=== PATIENT | female | born 1980 | race Caucasian/White ===

== ENCOUNTER 2022-01-31 16:15 | Outpatient (CLI) | payer SELFPAY ==
[2022-01-31 16:37] VITALS: BP 111/69; PULSE 86
[2022-01-31 16:42] VITALS: BMI 29.2
[2022-01-31 16:52] VITALS: BP 104/69; PULSE 95
[2022-01-31 17:08] VITALS: BP 113/69; PULSE 75
[2022-01-31 17:22] VITALS: BP 108/67; PULSE 74
[2022-01-31 17:32] VITALS: BP 108/67; PULSE 74; RESP 16; TEMP 36.6
== END 2022-01-31 17:40 | disposition home or self-care (01) ==
LOC: OPOB 16:29 → OBGYN 16:30
PROVIDERS: Visit Provider Family Medicine
DX: O36.8190 Decreased fetal movements, unspecified trimester, not applicable or unspecified (principal); Z3A.00 Weeks of gestation of pregnancy not specified
CPT/HCPCS: 59025; 99211

== ENCOUNTER 2022-02-06 16:58 | Outpatient (CLI) | payer SELFPAY ==
[2022-02-06 17:10] VITALS: TEMP 35.9
[2022-02-06 17:11] VITALS: BP 115/76; PULSE 105
[2022-02-06 17:12] VITALS: TEMP 36.1
[2022-02-06 17:20] VITALS: BMI 27.4
[2022-02-06 17:28] VITALS: BP 111/76; PULSE 110
== END 2022-02-06 17:40 | disposition home or self-care (01) ==
LOC: OPOB 16:58 → OBGYN 16:59
PROVIDERS: Visit Provider Family Medicine
DX: O26.899 Other specified pregnancy related conditions, unspecified trimester (principal); Z3A.00 Weeks of gestation of pregnancy not specified
CPT/HCPCS: 59025

== ENCOUNTER 2022-02-09 10:25 | Outpatient (CLI) | payer SELFPAY ==
--- NOTE | 2022-02-09 | US_ITS ---
WS: [id number] BIOPHYSICAL PROFILE AND LIMITED OB. AMNIOTIC FLUID INDEX. HISTORY: POSSIBLE IUGR COMPARISON: 12/22/2021 Presentation: Vertex. Cervix: Closed and normal length. Placenta: Posterior, no previa or abruption. Grade: 1. HEART: FHR of 120BPM. measurements: BPD = 8.7 cm = 35w1d HC = 32.0 cm = 36w0d AC = 33.5 cm = 37w3d FL = 7.0 cm = 36w0d OSMEL: 8.0; largest single vertical pocket of amniotic fluid 3.5 cm. EFW: 2989 g; 58 %. AGA by ultrasound: 36w1d CARMEN by ultrasound: 03/08/2022 Abdominal circumference is measuring approximately 2 weeks greater then the BPD. Overall appropriate interval growth since the second trimester ultrasound is 12/22/2021. Biophysical profile: Parameters are as follows: Breathin Movement: 2 Tone: 2 Fluid volume: 2 US/US OB lmt w/ BPP wo NST IMPRESSION: 1. Biophysical profile score: 8/8. 2. Single intrauterine gestation of 36w1d and 03/08/2022. Abdominal circumferen ce is measuring just slightly greater than the head circumference and abdominal circumference. Less than 3 weeks discrepancy. 3. Estimated weight at the 58th percentile. 4. Normal amniotic fluid index.
[2022-02-09 10:30] VITALS: BMI 27.8
--- NOTE | 2022-02-09 10:32 | US_ITS ---
WS: [id number] BIOPHYSICAL PROFILE AND LIMITED OB. AMNIOTIC FLUID INDEX. HISTORY: POSSIBLE IUGR COMPARISON: 12/22/2021 Presentation: Vertex. Cervix: Closed and normal length. Placenta: Posterior, no previa or abruption. Grade: 1. HEART: FHR of 120BPM. measurements: BPD = 8.7 cm = 35w1d HC = 32.0 cm = 36w0d AC = 33.5 cm = 37w3d FL = 7.0 cm = 36w0d OSMEL: 8.0; largest single vertical pocket of amniotic fluid 3.5 cm. EFW: 2989 g; 58 %. AGA by ultrasound: 36w1d CARMEN by ultrasound: 03/08/2022 Abdominal circumference is measuring approximately 2 weeks greater then the BPD. Overall appropriate interval growth since the second trimester ultrasound is 12/22/2021. Biophysical profile: Parameters are as follows: Breathin Movement: 2 Tone: 2 Fluid volume: 2
[2022-02-09 10:36] VITALS: BP 111/73; PULSE 82
[2022-02-09 11:06] VITALS: BP 119/78; PULSE 73
[2022-02-09 11:36] VITALS: BP 117/78; PULSE 76
[2022-02-09 12:06] VITALS: BP 121/66; PULSE 71
[2022-02-09 13:04] VITALS: BP 121/66; PULSE 71
== END 2022-02-09 12:40 | disposition home or self-care (01) ==
LOC: OPOB 10:29 → OBGYN 10:30
PROVIDERS: Visit Provider Family Medicine
DX: O26.899 Other specified pregnancy related conditions, unspecified trimester (principal); Z3A.00 Weeks of gestation of pregnancy not specified; N89.8 Other specified noninflammatory disorders of vagina
CPT/HCPCS: 59025; 76815; 76819; 99211

== ENCOUNTER 2022-02-13 13:17 | Outpatient (CLI) | payer SELFPAY ==
[2022-02-13 13:23] VITALS: BP 124/82; PULSE 109
[2022-02-13 13:38] VITALS: BP 123/84; PULSE 97
== END 2022-02-13 13:50 | disposition home or self-care (01) ==
LOC: OPOB 13:18 → OBGYN 13:19
PROVIDERS: Visit Provider Family Medicine
DX: O09.529 Supervision of elderly multigravida, unspecified trimester (principal); Z3A.00 Weeks of gestation of pregnancy not specified
CPT/HCPCS: 59025

== ENCOUNTER 2022-02-16 | Inpatient (IN) | payer SELFPAY ==
[2022-02-15 23:40] VITALS: BP 126/77; PULSE 73
[2022-02-15 23:41] VITALS: TEMP 36
[2022-02-15 23:42] VITALS: BMI 28.0
[2022-02-15 23:53] LABS: Nitrazine Paper, PH Inconclusive
[2022-02-15 23:57] LABS: Actim Prom Positive
[2022-02-16] VITALS (64 sets, daily range): BP systolic 93–132; BP diastolic 54–73; PULSE 62–97; RESP 18; TEMP 36.3–36.6; O2SAT 92–100
[2022-02-16] MEDS: lactated ringers 1,000 ML 999 ML IV (00:18)
[2022-02-16 00:23] LABS: Basophils % 0.3 %; Eosinophils # 0.1 10^3/uL (0.0-0.8); Hematocrit 27.8 % (37.0-47.0); Hemoglobin 8.3 g/dL (11.5-15.3); Lymphocytes % 27.3 %; Mean Corpuscular HGB Conc 29.9 g/dL (30.0-36.0); Mean Corpuscular Hemoglobin 21.5 pg (28.0-34.0); Mean Platelet Volume 10.7 fL (7.4-10.4); Monocytes # 0.6 10^3/uL (0.2-0.9); Monocytes % 8.1 %; Neutrophils % 62.9 %; Nucleated Red Blood Cells % 0 %; Platelet Count 281 10^3/cmm (130-400); Red Blood Count 3.86 10^6/uL (4.1-5.3); Red Cell Distribution Width 15.3 % (12.1-15.1); White Blood Count 7.3 10^3/uL (4.0-10.0)
[2022-02-16] MEDS: citric acid-sodium citrate 30 mL UDC PO (00:30)
[2022-02-16] MEDS: metoclopramide 5 mg/mL SDV 2 mL 10 MG IVP (00:30)
[2022-02-16] MEDS: famotidine 20 mg/2 mL INJ IVP (00:30)
--- NOTE | 2022-02-16 00:31 | PM.OPHPUD ---
Labor & Delivery H&P Update Date of Procedure: February 16, 2022 Date H&P Performed: 02/15/22 Admission Diagnosis: IUP at 38 weeks 1 day gestation Spontaneous rupture of membranes Repeat section Advanced maternal age Grand multiparity Desired permanent surgical sterilization Planned procedure: Repeat low transverse section Bilateral tubal ligation
--- NOTE | 2022-02-16 00:39 | ANES.PREANE2 ---
Pre-Anesthetic Assessment Height/Weight: Height 1.6 m Weight 71.668 kg Temp Pulse BP 96.8 F L 73 126/77 02/15/22 23:41 02/15/22 23:40 02/15/22 23:40 Familial anesthetic complications: none Was Beta Efe taken within 24 hours: N/A Was Clonidine taken within 24 hours: N/A Last intake: Intake Last Liquid Date 02/15/22 Last Liquid Time 22:45 Last Solid Date 02/15/22 Last Solid Time 19:19 Social Tobacco (Vapes) and No alcohol Exam alert, oriented x 3 and regular rate & rhythm Airway Submandibular: within normal limits Cervical ROM: within normal limits Mallampati: Class II Dentition: chipped Anesthetic Plan ASA status: 2E Anesthesia: Regional (specify below) (SAB for repeat C/S (X4)) Medications/Allergies Home Medications Medication Instructions Recorded Confirmed Last Taken Type ferrous sulfate 325 mg (65 mg mg 02/06/22 02/15/22 History iron) tablet (Iron (ferrous sulfate)) Allergies Allergy/AdvReac Type Severity Reaction Status Date / Time No Known Allergies Allergy Verified 02/09/22 10:36 Current Medications Generic Name Dose Route Start Last Admin Trade Name Freq PRN Reason Stop Dose Admin Lactated Ringer's 1,000 mls @ 999 mls/hr 02/16/22 00:01 02/16/22 00:18 Lactated Ringers IV 02/16/22 01:01 999 mls/hr .Q1H1M ONE Administration PFSH Anesthesia Female Reproductive History : 10 Data Anesthesia : 02/16/22 00:05 Short CBC 02/16/22 Range/Units 00:05 WBC 7.3 (4.0-10.0) 10^3/uL Hgb 8.3 L (11.5-15.3) g/dL Hct 27.8 L (37.0-47.0) % MCV 72.0 L (81-99) fl Plt Count 281 (130-400) 10^3/cmm Neut % (Auto) 62.9 % Neut # (Auto) 4.60 (1.8-7.7) 10^3/uL Cardiac Studies: No Data to Display
--- NOTE | 2022-02-16 01:58 | ANE.PACU2 ---
Inpatient post-anesthesia follow up: Airway intact: Yes Vital signs: Temperature 96.8 F Pulse Rate 73 Respiratory Rate 14 Blood Pressure 126/77 Pulse Oximetry 100 Oxygen Delivery Me thod room air Oxygen Flow Rate Fraction of Inspir ed Oxygen Hydration adequate: Yes Nausea and vomiting: No Pain level: 1 Mental status: Baseline
--- NOTE | 2022-02-16 01:58 | PM.OP ---
Operative Report Date of procedure: February 16, 2022 Pre-op diagnosis: Repeat section Desired permanent surgical sterilization IUP at 38 weeks 1 days gestation Spontaneous rupture of membranes Procedure done: repeat low transverse section Bilateral tubal ligation Specimens removed/disposition: Vertex male infant weight 2800 g, 6 pounds 3 ounces, Apgars 8 and 9 Pathology: Segments of right and left fallopian tube Estimated blood loss (mL): 400 IV fluids (mL): 1,200 Urine output (mL): 400 Complications: None Procedure: After informed consent the patient was taken to the OR where spinal anesthesia was administered. She was prepped and draped in normal sterile fashion in dorsal supine position with a left lateral tilt. A Pfannenstiel skin incision was made through the previous scars and carried through to the underlying layer of fascia sharply. The fascia was then extended laterally using the Mayos. The fascia was grasped with Jeevan clamps and the underlying rectus muscles were dissected off. The uterus was present at the midline due to a space between the rectus muscles. There was not peritoneum overlying it. The site was manually stretched and the bladder blade was inserted. The vesicouterine peritoneum was identified and entered sharply using the Metzenbaums. The bladder flap was created digitally and the bladder blade was reinserted. Uterine incision was made in a transverse fashion in the lower uterine segment. Amniotic rupture of membranes was performed digitally with clear fluid. The infant was delivered vertex presentation without complication. Bulb suction of mouth and nares was performed at delivery. The cord was clamped and cut and the was handed to the waiting pediatric nurses. Cord blood was obtained. The placenta was then delivered using fundal pressure. A dry sponge was used to clear the uterus of clots and debris and the uterus was exteriorized from the abdomen. The uterine incision was repaired using 0 chromic in a running locked fashion. A second layer of the same suture was used in an imbricating manner. Pressure was applied to the incision site while tubal ligation was performed. The left fallopian tube was grasped with a Jayy and a proximal portion of the tube was ligated and excised. Specimen was sent to [facility] pathology. Tubal ostia were identified. The cut portions of the tube were coagulated using the Bovie. The right fallopian tube was then grasped with a [place] and a proximal portion of the tube was ligated and excised. Segment of the tube was sent to pathology. Tubal ostia were identified. Cut portions of the tube were coagulated using the Bovie. The uterine incision was then inspected for hemostasis and was found to have a small amount of bleeding at the midline. 0 chromic was used in an interrupted fashion along with pressure to obtain hemostasis. The uterus was then returned to the abdomen. Irrigation was used to clear the gutters of clots and debris and the uterine incision was reinspected for hemostasis. Due to a lack of abdominal peritoneum the rectus muscles were gently reapproximated at the midline using 4-0 Vicryl in an interrupted fashion. The subfascial tissue was inspected for hemostasis and the fascia was then reapproximated using 0 Vicryl in a running fashion. The subcutaneous tissue was irrigated and any small bleeders were coagulated using the Bovie. The subcutaneous tissue was then reapproximated using 4-0 Vicryl in a running fashion. The skin was then reapproximated using renee. A pressure bandage was applied and patient went to recovery in good condition. Sponge instrument and needle counts were correct.
[2022-02-16 05:11] LABS: Cocaine Screen Urine Negative (Negative); PCP Screen Urine Negative (Negative); THC Screen Urine Negative (Negative)
[2022-02-16 05:12] LABS: Amphetamines Screen Urine Negative (Negative); Barbiturates Screen Urine Negative (Negative); Benzodiazepines Screen Urine Negative (Negative); Opiate Screen Urine Negative (Negative)
[2022-02-16] MEDS: ketorolac 30 mg/mL INJ IVP ×3 (08:31→20:16)
[2022-02-16] MEDS: prenatal vitamin Capsule 1 CAP PO (08:32)
[2022-02-16] MEDS: ferrous sulfate EC 325 mg Tablet PO ×2 (08:32→18:31)
[2022-02-16] MEDS: docusate sodium 100 mg Capsule PO ×2 (08:32→18:31)
--- NOTE | 2022-02-16 13:00 | PC.NURSE ---
Patient up to ambulate halls of OBGYN unit x 2 with standby assist from RN SILVINA RN
[2022-02-16 14:45] LABS: Hematocrit 24.8 % (37.0-47.0); Hemoglobin 7.6 g/dL (11.5-15.3); Mean Corpuscular HGB Conc 30.6 g/dL (30.0-36.0); Mean Corpuscular Hemoglobin 21.8 pg (28.0-34.0); Mean Corpuscular Volume 71.1 fl (81-99); Mean Platelet Volume 10.7 fL (7.4-10.4); Platelet Count 222 10^3/cmm (130-400); Red Blood Count 3.49 10^6/uL (4.1-5.3); Red Cell Distribution Width 15.1 % (12.1-15.1); White Blood Count 7.4 10^3/uL (4.0-10.0)
--- NOTE | 2022-02-16 16:30 | PC.NURSE ---
Catheter removed at this time. SILVINA RN
[2022-02-17] MEDS: HYDROcodone-acetaminophen 5-325 mg Tablet PO ×3 (01:09→13:49)
[2022-02-17 04:17] VITALS: BP 115/60; PULSE 97; TEMP 36.9
[2022-02-17] MEDS: prenatal vitamin Capsule 1 CAP PO (07:52)
[2022-02-17] MEDS: ferrous sulfate EC 325 mg Tablet PO (07:52)
[2022-02-17] MEDS: docusate sodium 100 mg Capsule PO (07:52)
[2022-02-17] MEDS: ibuprofen 800 mg tablet PO (11:18)
[2022-02-17 11:19] VITALS: BP 107/66; PULSE 83; RESP 14; TEMP 36.2
[2022-02-17 11:20] VITALS: BP 107/66; PULSE 83
--- NOTE | 2022-02-17 12:15 | PM.DCS ---
Discharge Providers Date of Admission: 02/16/22 00:00 Date of Discharge: February 17, 2022 Attending Provider at Admission: Charleen Naik MD Attending Provider at Discharge: Charleen Naik MD Reason for Visit Reason for Visit: poss [facility] Hospital Course Hospital Course This is a 42-year-old G 10 now P 10 who was admitted for spontaneous rupture of membranes with history of prior sections. She was at 38 weeks 1 day gestation. She underwent a repeat section with bilateral tubal ligation. Postoperatively she has done well. She was ambulating, tolerating a regular diet, has good pain control and is comfortable with discharge home. She does have known anemia and her last hemoglobin was 7.6. She is asymptomatic and will continue taking iron upon discharge. Physical Exam Narrative: Alert and oriented, sitting in bedside chair, heart regular rate and rhythm, lungs clear to auscultation bilaterally, abdomen is soft with appropriate postoperative tenderness, pressure bandage is still in place clean dry and intact, extremities have no calf tenderness and no edema. Discharge Data Studies Completed and Pending Laboratory Results WBC 7.4 10^3/uL (4.0-10.0) 02/16/22 14:31 RBC 3.49 10^6/uL (4.1-5.3) L 02/16/22 14:31 Hgb 7.6 g/dL (11.5-15.3) L 02/16/22 14:31 Hct 24.8 % (37.0-47.0) L 02/16/22 14:31 MCV 71.1 fl (81-99) L 02/16/22 14:31 MCH 21.8 pg (28.0-34.0) L 02/16/22 14:31 MCHC 30.6 g/dL (30.0-36.0) 02/16/22 14:31 RDW 15.1 % (12.1-15.1) 02/16/22 14:31 Plt Count 222 10^3/cmm (130-400) 02/16/22 14:31 MPV 10.7 fL (7.4-10.4) H 02/16/22 14:31 Neut % (Auto) 62.9 % 02/16/22 00:05 Lymph % (Auto) 27.3 % 02/16/22 00:05 Pepin % (Auto) 8.1 % 02/16/22 00:05 Eos % (Auto) 1.0 % 02/16/22 00:05 Baso % (Auto) 0.3 % 02/16/22 00:05 Neut # (Auto) 4.60 10^3/uL (1.8-7.7) 02/16/22 00:05 Lymph # (Auto) 2.0 10^3/uL (0.8-4.8) 02/16/22 00:05 Pepin # (Auto) 0.6 10^3/uL (0.2-0.9) 02/16/22 00:05 Eos # (Auto) 0.1 10^3/uL (0.0-0.8) 02/16/22 00:05 Baso # (Auto) 0.0 10^3/uL (0.0-0.1) 02/16/22 00:05 Nucleated RBC % (auto) 0 % 02/16/22 00:05 Nucleated RBCs # 0.0 /100WBC 02/16/22 00:05 Insulin-like GF I Positive 02/15/22 23:50 Urine Opiates Screen Negative ng/mL (Negative) 02/16/22 00:53 Ur Barbiturates Screen Negative ng/mL (Negative) 02/16/22 00:53 Ur Phencyclidine Scrn Negative ng/mL (Negative) 02/16/22 00:53 Ur Amphetamines Screen Negative ng/mL (Negative) 02/16/22 00:53 U Benzodiazepines Scrn Negative ng/mL (Negative) 02/16/22 00:53 Urine Cocaine Screen Negative ng/mL (Negative) 02/16/22 00:53 U Marijuana (THC) Screen Negative ng/mL (Negative) 02/16/22 00:53 Blood Type O Positive 02/16/22 00:05 Rho(D) Type Positive 02/16/22 00:05 Antibody Screen Negative 02/16/22 00:05 Vitals Last Vital Signs Temp 97.2 F L 02/17/22 11:19 Pulse 83 02/17/22 11:20 Resp 14 02/17/22 11:19 BP 107/66 02/17/22 11:20 Pulse Ox 98 02/16/22 06:33 O2 Del Method 02/16/22 00:24 Discharge Plan Discharge Patient Disposition: Home Condition: Stable Prescriptions: New ibuprofen 800 mg Tablet 800 mg PO TID PRN (Reason: Abdominal Discomfort) Qty: 40 0RF hydrocodone-acetaminophen 5-325 mg Tablet 1 - 2 tab PO Q4H PRN (Reason: Moderate To Severe Pain) Qty: 12 0RF docusate sodium 100 mg Capsule 100 mg PO BID Qty: 60 0RF Continued ferrous sulfate [Iron (ferrous sulfate)] 325 mg (65 mg iron) Tablet Discharge Orders: Discharge Order (Routine); Ordered 02/17/22 Ordered By: Charleen Naik Referrals: Charleen Naik MD [Physician] - 1-3 days (Sunday for staple removal) Discharge Diet: Usual diet Discharge Activity: Limit activity as instructed Patient Instructions: Opioid Safety Discharge Attestations Time Spent in Discharge Care*: less than 30 min Quality Metrics Clinical Quality Measures [ No reported AMI, CVA or VTE this stay] Coding Level of Care Code Acute Chg FW DC note
[2022-02-17 17:03] VITALS: BP 112/67; PULSE 101; TEMP 36.9
[2022-02-17 18:00] VITALS: BP 112/67; PULSE 101; TEMP 36.9
== END 2022-02-17 17:25 | disposition home or self-care (01) | DRG 785 ==
LOC: OPOB 00:45 → OBGYN 00:45
PROVIDERS: Admitting Provider Family Medicine; Visit Provider Family Medicine
DX: O34.211 Maternal care for low transverse scar from previous cesarean delivery (principal); Z3A.38 38 weeks gestation of pregnancy; Z37.0 Single live birth; Z30.2 Encounter for sterilization
CPT/HCPCS: 36415; 51702; 58611; 59025; 59409; 80306; 83986; 84112; 85025; 85027; 86850; 86900; 88302; 99211; J1885; J2274; J2370; J2765; J3010; J3490; J7030

== ENCOUNTER 2022-05-15 06:26 | Emergency (ER) | payer SELFPAY ==
[2022-05-15 06:28] VITALS: BP 106/62; PULSE 75; RESP 18; TEMP 36.6; O2SAT 100; BMI 24.7
--- NOTE | 2022-05-15 07:08 | W.ED.DIZZY ---
HPI - Dizziness General: Chief Complaint: Dizziness Stated Complaint: dizziness, n/v Time Seen by Provider: 05/15/22 06:29 Source: patient Mode of arrival: EMS History of Present Illness: HPI Narrative: 42-year-old female presents to the emergency room with complaint of dizziness with any position changes. Worse when she sits up or stands up. Patient states it began suddenly around 8:00 last night she has not had any other concurrent symptoms. MD elicited complaint: dizziness and lightheadedness Onset (ago): hour(s) Timing: sudden onset Severity: moderate Description: sense of movement and lightheadedness Context: change in body position Exacerbating factors: change in body position Relieving factors: remaining still and lying down Associated symptoms: Denies change in hearing, chest pain, chills, cough, diaphoresis, ear discharge, ear pressure, fevers/chills, headache(s), malaise, nausea, nasal congestion, palpitations, rash, short of breath, syncope, tinnitus, vomiting or weakness Associated neuro symptoms: Deny confusion, difficulty speaking, dysphagia, diplopia, extremity weakness, facial numbness, facial weakness, gait changes, numbness in extremities or visual changes Review of Systems Const: Denies: fever(s), chills, malaise or diaphoresis ENMT: Denies: ear discharge, change in hearing, tinnitus or nasal congestion Card: Denies: chest pain, palpitations or syncope Resp: Denies: dyspnea, productive cough or non-productive cough GI: Denies: abdominal pain, nausea, vomiting or dysphagia : Denies: flank pain, difficulty voiding, dysuria, urinary frequency or urinary urgency Skin/Breast: Denies: rash or pruritus Neuro: Denies: headache(s), numbness in extremities or confusion [facility] ED PFSH: Medical History (Updated 05/15/22 @ 09:30 by Elmer Sethi DO) Anemia Surgical History Previous section Social History (Updated 05/15/22 @ 07:20 by Elmer Sethi DO) Smoking and tobacco status: current every day smoker Physical Exam Const: COMMON NORMALS: no acute distress GENERAL APPEARANCE: cooperative and comfortable ORIENTATION/CONSCIOUSNESS: Yes awake, Yes oriented to person, Yes oriented to place and Yes oriented to time HENMT: COMMON NORMALS: normocephalic, atraumatic, hearing grossly normal bilaterally, external ears normal, EAC's normal, TM's normal bilaterally, Normal nasal mucous membranes and turbinates present, moist oral mucous membranes and oropharynx normal HEAD & SCALP: normocephalic and atraumatic NOSE: Normal nasal mucous membranes and turbinates present EXTERNAL EAR: Yes external ears normal EXTERNAL AUDITORY CANAL: EAC's normal TYMPANIC MEMBRANE: TM's normal bilaterally Eye: COMMON NORMALS: Equal, round and reactive pupils present, EOMs intact bilaterally, conjunctivae normal and no scleral icterus CONJUNCTIVA: Yes conjunctivae normal PUPIL: Yes Equal, round and reactive pupils present Neck/C-Spine: COMMON NORMALS: full ROM, no lymphadenopathy, supple and no JVD Resp: COMMON NORMALS: normal respiratory effort, No retractions, No use of accessory muscles and clear to auscultation bilaterally AUSCULTATION: clear to auscultation bilaterally Cardio: COMMON NORMALS: no JVD, regular rate, regular rhythm and No murmurs present (Cardio) RATE: regular rate RHYTHM: regular rhythm GI: COMMON NORMALS: Soft to palpation and No hepatosplenomegaly present AUSCULTATION: Yes normoactive bowel sounds PALPATION: Yes Soft to palpation, No Tenderness to palpation present (GI), No Guarding due to palpation present (GI) and Yes No hepatosplenomegaly present Extremity: COMMON NORMALS: normal to inspection, capillary refill normal, no clubbing, cyanosis or edema, no calf tenderness and no pedal edema Neuro: SENSORIUM/ORIENTATION: Yes oriented to person, Yes oriented to place and Yes oriented to time Skin: COMMON NORMALS: no rashes or lesions noted GENERAL SKIN EXAM: no rashes or lesions noted Course Vital Signs: Vital signs: Vital Signs Temperature 97.9 F 05/15/22 06:28 Pulse Rate 95 05/15/22 10:06 Respiratory Rate 18 05/15/22 06:28 Blood Pressure 102/64 05/15/22 10:06 Pulse Oximetry 100 05/15/22 06:28 MDM - Dizziness Medical Decision Making Dizziness positional. She was not orthostatic but she is somewhat hypotensive she is given 2 L of fluids is feeling somewhat better we will treat her with meclizine continue her iron supplement and encourage her to follow-up with her primary care doctor to reevaluate her anemia. Medical Records I reviewed the patient's medical records. Lab Data I reviewed the patient's lab results. : 05/15/22 07:22 05/15/22 07: Laboratory Results WBC 6.1 10^3/uL (4.0-10.0) 05/15/22 07: RBC 4.00 10^6/uL (4.1-5.3) L 05/15/22 07: Hgb 8.7 g/dL (11.5-15.3) L 05/15/22 07: Hct 28.8 % (37.0-47.0) L 05/15/22 07: MCV 72.0 fl (81-99) L 05/15/22 07: MCH 21.8 pg (28.0-34.0) L 05/15/22 07: MCHC 30.2 g/dL (30.0-36.0) 05/15/22: RDW 17.0 % (12.1-15.1) H 05/15/22 07: Plt Count 381 10^3/cmm (130-400) 05/15/22 07: MPV 9.7 fL (7.4-10.4) 05/15/22: Neut % (Auto) 82.8 % 05/15/22 07: Lymph % (Auto) 11.6 % 05/15/22 07: Cochran % (Auto) 4.6 % 05/15/22 07: Eos % (Auto) 0.2 % 05/15/22 07: Baso % (Auto) 0.5 % 05/15/22:22 Neut # (Auto) 5.08 10^3/uL (1.8-7.7) 05/15/22 07: Lymph # (Auto) 0.7 10^3/uL (0.8-4.8) L 05/15/22 07: Cochran # (Auto) 0.3 10^3/uL (0.2-0.9) 05/15/22 07:22 Eos # (Auto) 0.0 10^3/uL (0.0-0.8) 05/15/22 07: Baso # (Auto) 0.0 10^3/uL (0.0-0.1) 05/15/22 07:22 Nucleated RBC % (auto) 0 % 05/15/22 07: Nucleated RBCs # 0.0 /100WBC 05/15/22 07:22 Sodium 138 mmol/L (136-145) 05/15/22 07:22 Potassium 4.0 mmol/L (3.5-5.1) 05/15/22 07:22 Chloride 101 mmol/L (98-107) 05/15/22 07:22 Carbon Dioxide 25 mmol/L (22-29) 05/15/22 07:22 Anion Gap 16.0 (5-19) 05/15/22 07:22 BUN 12 mg/dL (6-20) 05/15/22 07:22 Creatinine 0.6 mg/dL (0.5-0.9) 05/15/22 07:22 GFR Calculation 110.2 mL/min (90-130) 05/15/22 07:22 Glucose 91 mg/dL (65-115) 05/15/22 07:22 Calculated Osmolality 285 mOsm/kg (285-295) 05/15/22 07:22 Calcium 9.2 mg/dL (8.5-10.5) 05/15/22 07:22 Total Bilirubin 0.2 mg/dL (0.15-1.2) 05/15/22 07:22 AST 14 U/L (0-32) 05/15/22 07:22 ALT 7 U/L (0-33) 05/15/22 07:22 Alkaline Phosphatase 74 U/L (35-105) 05/15/22 07:22 Total Protein 7.5 g/dL (6.6-8.7) 05/15/22 07:22 Albumin 4.5 g/dL (3.5-5.2) 05/15/22 07:22 Globulin 3.0 g/dL (1.3-4.6) 05/15/22 07:22 HCG, Qual Negative (Negative) 05/15/22 07:22 Urine Color Yellow (Yellow) 05/15/22 08:54 Urine Appearance Sl hazy (CLEAR) A 05/15/22 08:54 Urine pH 6 (5-7) 05/15/22 08:54 Ur Specific Elizabeth 1.010 (1.005-1.030) 05/15/22 08:54 Urine Protein Neg (Negative) 05/15/22 08:54 Urine Glucose (UA) Norm (Normal) 05/15/22 08:54 Urine Ketones 1+ (Negative) H 05/15/22 08:54 Urine Blood 3+ (Negative) H 05/15/22 08:54 Urine Nitrate Negative (Negative) 05/15/22 08:54 Urine Bilirubin Neg (Negative) 05/15/22 08:54 Urine Urobilinogen Norm mg/dL (Negative) 05/15/22 08:54 Ur Leukocyte Esterase Trace (Negative) H 05/15/22 08:54 Urine RBC 0-4 /hpf (0-2) H 05/15/22 08:54 Urine WBC 0-4 /hpf (0-5) H 05/15/22 08:54 Ur Squamous Epith Cells 5-10 /hpf (0-5) H 05/15/22 08:54 Amorphous Sediment Not Reportable 05/15/22 08:54 Urine Bacteria 2+ /hpf (NONE) H 05/15/22 08:54 Discharge Plan Discharge Patient Disposition: Home Clinical Impression: Benign paroxysmal positional vertigo, Anemia Condition: Stable Prescriptions: New meclizine 25 mg tablet 25 mg PO QID PRN (Reason: dizziness) Qty: 20 0RF No Action ferrous sulfate [Iron (ferrous sulfate)] 325 mg (65 mg iron) Tablet ibuprofen 800 mg Tablet 800 mg PO TID PRN (Reason: Abdominal Discomfort) Qty: 40 0RF hydrocodone-acetaminophen 5-325 mg Tablet 1 - 2 tab PO Q4H PRN (Reason: Moderate To Severe Pain) Qty: 12 0RF docusate sodium 100 mg Capsule 100 mg PO BID Qty: 60 0RF Discharge Orders: Discharge ED (Routine); Ordered 05/15/22 Ordered By: Elmer Sethi Discharge Diet: Usual diet Discharge Activity: Increase activity as tolerated Patient Instructions: Benign Paroxysmal Positional Vertigo (ED), Opioid Safety, Pain Management Activity Restrictions/Additional Instructions: You were seen in the emergency room for dizziness with changing position. Your blood pressure while low remained stable. Your symptoms are consistent with positional vertigo. Use the meclizine 1 every 6 hours as needed for dizziness symptoms. Continue your iron supplement follow-up with your primary care doctor to further evaluate your anemia. If the dizziness persists beyond the next few days follow-up with your primary care doctor. Coding Level of Care Code ED Legal Instruments Examiner for Chg Fwd Exam Comprehensive
[2022-05-15] MEDS: ondansetron 2 mg/ML SDV 2 mL 4 MG IVP (07:26)
[2022-05-15] MEDS: sodium chloride 0.9% 1,000 ML 999 ML IV ×2 (07:26→09:35)
--- NOTE | 2022-05-15 07:27 | ECG_ITS ---
[facility] Test Date: 2022-05-15 Pat Name: Joslyn Lang Department: Room: Gender: Female [employer] [address] [employer]: : 1980 Requested By: Elmer Velasquez Order Number: [id number] Quan MD: Hunter Canela M.D. Measurements Intervals [place] Rate: 63 P: 52 WI: 158 QRS: 71 QRSD: 97 T: 59 QT: 443 QTc: 454 Interpretive Statements SINUS RHYTHM MODERATE ST DEPRESSION [0.05+ mV ST DEPRESSION] No previous ECG available for comparison Electronically Signed On 05-16-2022 7:03:04 NETWORK SYSTEMS INTEGRATOR by Hunter Canela M.D. [id number]
[2022-05-15 07:30] LABS: Basophils % 0.5 %; Eosinophils % 0.2 %; Hematocrit 28.8 % (37.0-47.0); Hemoglobin 8.7 g/dL (11.5-15.3); Lymphocytes # 0.7 10^3/uL (0.8-4.8); Lymphocytes % 11.6 %; Mean Corpuscular HGB Conc 30.2 g/dL (30.0-36.0); Mean Corpuscular Hemoglobin 21.8 pg (28.0-34.0); Mean Platelet Volume 9.7 fL (7.4-10.4); Monocytes # 0.3 10^3/uL (0.2-0.9); Monocytes % 4.6 %; Neutrophils # 5.08 10^3/uL (1.8-7.7); Neutrophils % 82.8 %; Nucleated Red Blood Cells % 0 %; Platelet Count 381 10^3/cmm (130-400); White Blood Count 6.1 10^3/uL (4.0-10.0)
[2022-05-15 07:31] VITALS: BP 102/67; BP 93/73; BP 99/66; PULSE 59; PULSE 63; PULSE 70
[2022-05-15 07:53] LABS: Alanine Aminotransferase 7 U/L (0-33); Albumin Level 4.5 g/dL (3.5-5.2); Alkaline Phosphatase 74 U/L (35-105); Aspartate Amino Transferase 14 U/L (0-32); Blood Urea Nitrogen 12 mg/dL (6-20); Calcium 9.2 mg/dL (8.5-10.5); Carbon Dioxide 25 mmol/L (22-29); Chloride 101 mmol/L (98-107); Glomerular Filtration Rate 110.2 mL/min (90-130); Glucose 91 mg/dL (65-115); Osmolality Calculated 285 mOsm/kg (285-295); Sodium 138 mmol/L (136-145); Total Bilirubin 0.2 mg/dL (0.15-1.2); Total Protein 7.5 g/dL (6.6-8.7)
[2022-05-15 09:19] LABS: Add Urine Microscopic? YES; Bacteria Urine 2+ /hpf; Bilirubin Urine Neg (Negative); Blood Urine 3+ (Negative); Glucose Urine UA Norm (Normal); Ketones Urine 1+ (Negative); Leukocyte Esterase Urine Trace (Negative); Nitrate Urine Negative (Negative); Protein Urine Neg (Negative); RBC Urine 0-4 /hpf (0-2); Urine Appearance SL Hazy (CLEAR); Urine Color Yellow (Yellow); Urobilinogen Urine Norm (Negative); WBC Urine 0-4 /hpf (0-5); pH Urine 6 (5-7)
[2022-05-15 09:20] LABS: Add Urine Culture? Yes
[2022-05-15] MEDS: meclizine 25 mg tablet PO (09:35)
[2022-05-15 10:06] VITALS: BP 102/64; PULSE 95
[2022-05-15 10:18] LABS: HCG, Serum Qual Negative (Negative)
[2022-05-15 11:27] VITALS: BP 99/66; PULSE 65; RESP 15; O2SAT 100
== END 2022-05-15 11:26 | disposition home or self-care (01) ==
PROVIDERS: Emergency Provider Family Medicine
DX: H81.10 Benign paroxysmal vertigo, unspecified ear (principal); D64.9 Anemia, unspecified; F17.210 Nicotine dependence, cigarettes, uncomplicated
CPT/HCPCS: 80053; 81001; 84703; 85025; 87086; 93005; 96361; 96374; 99284; J2405; J7030; J8597

== ENCOUNTER 2024-07-10 17:33 | Emergency (ER) | payer OTHER, SELFPAY ==
[2024-07-10] VITALS (19 sets, daily range): BP systolic 90–135; BP diastolic 59–89; PULSE 80–119; RESP 15–17; TEMP 36.6–37; O2SAT 97–100; BMI 23.3
--- NOTE | 2024-07-10 17:53 | ED_ITS ---
HPI - Recheck/Abnormal Lab/Rx 2 General: Chief Complaint: Recheck/Abnormal Lab/Rx Stated Complaint: low hemoglobin 6.5 Time Seen by Provider: 07/10/24 17:38 Source: patient Mode of arrival: ambulatory Limitations: no limitations History of Present Illness: 44-year-old female who states that she h as had issues with anemia for years states that she has been having fatigue and feeling weak for the last 6 to 7 months she states she does not have a primary care doctor but went and had blood work done yesterday and got a result her hemoglobin was 6.5. She had a history of B12 deficiency she denies any blood in her stool or vomit. Related Data Home Medications Medication Instructions Recorded Confirmed ferrous sulfate 325 mg (65 mg mg 02/06/22 iron) tablet (Iron (ferrous sulfate)) Previous Rx's Medication Instructions Recorded docusate sodium 100 mg capsule 100 mg PO BID #60 caps 02/17/22 hydrocodone 5 mg-acetaminophen 325 1 - 2 tab PO Q4H PRN Moderate To 02/17/22 mg tablet Severe Pain #12 tabs ibuprofen 800 mg tablet 800 mg PO TID PRN Abdominal 02/17/22 Discomfort #40 tabs meclizine 25 mg tablet 25 mg PO QID PRN dizziness #20 tabs 05/15/22 Allergies Allergy/AdvReac Type Severity Reaction Status Date / Time No Known Allergies Allergy Verified 02/09/22 10:36 Review of Systems 2 Const: Reports: fatigue and malaise; Denies: fever(s), chills, body aches or change in appetite Eyes: Denies: blurry vision or eye discomfort ENMT: Denies: throat pain or dental pain Card: Denies: chest pain Resp: Denies: dyspnea GI: Denies: abdominal pain, nausea, vomiting or diarrhea Musc: Denies: neck pain or back pain Skin/Breast: Denies: rash Neuro: Denies: headache(s) PFSH ED 2 PFSH: Medical History Anemia Surgical History Previous section Social History Smoking and tobacco/nicotine status: current every day tobacco/nicotine user Female Reproductive History: Date of last menstrual period: 06/17/24 Physical Exam 2 Const: COMMON NORMALS: no acute distress, patient oriented x3 and healthy appearing HENMT: COMMON NORMALS: normocephalic and atraumatic HEAD & SCALP: n ormocephalic and atraumatic Eye: COMMON NORMALS: conjunctivae normal CONJUNCTIVA: Yes conjunctivae normal Neck/C-Spine: COMMON NORMALS: full ROM and supple Chest: COMMONS NORMALS: normal inspection of the chest Resp: COMMON NORMALS: normal respiratory effort, No retractions, No use of accessory muscles and clear to auscultation bilaterally AUSCULTATION: clear to auscultation bilaterally Cardio: COMMON NORMALS: regular rate, regular rhythm and No murmurs present (Cardio) RATE: regular rate RHYTHM: regular rhythm Extremity: COMMON NORMALS: normal to inspection and full ROM Neuro: COMMON NORMALS: patient oriented x3, moves all extremities and no focal motor deficits Psych: COMMON NORMALS: mental status grossly normal, Normal thought process present and cooperative THOUGHT PROCESS: Normal thought process present Skin: COMMON NORMALS: no rashes or lesions noted and no wounds GENERAL SKIN EXAM: no rashes or lesions noted Course 2 Vital Signs: Vital signs: Vital Signs Temperature 98.1 F 07/10/24 17:41 Pulse Rate 80 07/10/24 19:04 Respiratory Rate 16 07/10/24 19:04 Blood Pressure 103/59 07/10/24 19:04 Pulse Oximetry 98 07/10/24 19:04 Oxygen Delivery Me thod Room Air 07/10/24 17:41 MDM - Recheck/Abnormal Lab/Rx Medical Decision Making Patient presents here with weakness he is anemic will transfuse her here 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 She is to follow-up with PCP and return if worsening. Medical Records I reviewed the patient's medical records. Lab Data I reviewed the patient's lab results. 07/10/24 18:07 07/10/24 18:07 Laboratory Results WBC 6.74 10^3/uL (3.29-11.43) 07/10/24 18:07 RBC 3.95 10^6/uL (3.85-5.65) 07/10/24 18:07 Hgb 5.90 g/dL (11.27-16.99) L* 07/10/24 18:07 Hct 22.5 % (36-47) L 07/10/24 18:07 MCV 57.0 fl (85-98) L 07/10/24 18:07 MCH 14.9 pg (27-33) L 07/10/24 18:07 MCHC 26.2 g/dL (30-55) L 07/10/24 18:07 RDW 20.6 % (12.1-15.1) H 07/10/24 18:07 Plt Count 367 10^3/cmm (157-399) 07/10/24 18:07 MPV 9.7 fL (7.4-10.4) 07/10/24 18:07 Neut % (Auto) 57.4 % 07/10/24 18:07 Lymph % (Auto) 29.8 % 07/10/24 18:07 [place] % (Auto) 9.8 % 07/10/24 18:07 Eos % (Auto) 1.9 % 07/10/24 18:07 Baso % (Auto) 0.7 % 07/10/24 18:07 Neut # (Auto) 3.86 10^3/uL (1.8-7.7) 07/10/24 18:07 Lymph # (Auto) 2.0 10^3/uL (0.8-4.8) 07/10/24 18:07 [place] # (Auto) 0.7 10^3/uL (0.2-0.9) 07/10/24 18:07 Eos # (Auto) 0.1 10^3/uL (0.0-0.8) 07/10/24 18:07 Baso # (Auto) 0.1 10^3/uL (0.0-0.1) 07/10/24 18:07 Nucleated RBC % (auto) 0 % 07/10/24 18:07 Nucleated RBCs # 0.0 /100WBC 07/10/24 18:07 Sodium 137 mmol/L (136-145) 07/10/24 18:07 Potassium 3.9 mmol/L (3.5-5.1) 07/10/24 18:07 Chloride 103 mmol/L (98-107) 07/10/24 18:07 Carbon Dioxide 23 mmol/L (22-29) 07/10/24 18:07 Anion Gap 14.9 (5-19) 07/10/24 18:07 BUN 12 mg/dL (6-20) 07/10/24 18:07 Creatinine 0.5 mg/dL (0.5-0.9) 07/10/24 18:07 GFR Calculation 134.7 mL/min (90-130) H 07/10/24 18:07 Glucose 67 mg/dL (65-115) 07/10/24 18:07 Calculated Osmolality 282 mOsm/kg (285-295) L 07/10/24 18:07 Calcium 8.8 mg/dL (8.5-10.5) 07/10/24 18:07 Iron 10 ug/dL (37-145) L 07/10/24 18:07 Iron Cancelled 07/10/24 18:07 TIBC 455 mcg/dl 07/10/24 18:07 % Saturation 2.1 % (20-50) L 07/10/24 18:07 Unsat Iron Binding 445 ug/dL (112-347) H 07/10/24 18:07 Total Bilirubin 0.2 mg/dL (0.15-1.2) 07/10/24 18:07 AST 20 U/L (0-32) 07/10/24 18:07 ALT 10 U/L (0-33) 07/10/24 18:07 Alkaline Phosphatase 75 U/L (35-105) 07/10/24 18:07 Total Protein 7.5 g/dL (6.6-8.7) 07/10/24 18:07 Albumin 4.4 g/dL (3.5-5.2) 07/10/24 18:07 Globulin 3.1 g/dL (1.3-4.6) 07/10/24 18:07 Blood Type O Positive 07/10/24 18:07 Rho(D) Type Rh positive 07/10/24 18:07 Antibody Screen Negative 07/10/24 18:07 Crossmatch See Detail 07/10/24 18:07 No radiology studies performed this visit Discharge Plan Discharge Patient Disposition: Home Clinical Impression: Anemia Condition: Stable Prescriptions: No Action ferrous sulfate [Iron (ferrous sulfate)] 325 mg (65 mg iron) Tablet ibuprofen 800 mg Tablet 800 mg PO TID PRN (Reason: Abdominal Discomfort) Qty: 40 0RF hydrocodone-acetaminophen 5-325 mg Tablet 1 - 2 tab PO Q4H PRN (Reason: Moderate To Severe Pain) Qty: 12 0RF docusate sodium 100 mg Capsule 100 mg PO BID Qty: 60 0RF meclizine 25 mg tablet 25 mg PO QID PRN (Reason: dizziness) Qty: 20 0RF Discharge Orders: Discharge ED (Routine); Ordered 07/10/24 Ordered By: Titus Irving Discharge Diet: Advance as tolerated Discharge Activity: Resume usual activity Patient Instructions: Anemia (ED) Coding Level of Care Code ED Development Consultant for Fernanda Moore
[2024-07-10 18:24] LABS: Basophils # 0.1 10^3/uL (0.0-0.1); Basophils % 0.7 %; Eosinophils # 0.1 10^3/uL (0.0-0.8); Eosinophils % 1.9 %; Hematocrit 22.5 % (36-47); Lymphocytes % 29.8 %; Mean Corpuscular HGB Conc 26.2 g/dL (30-55); Mean Corpuscular Hemoglobin 14.9 pg (27-33); Mean Platelet Volume 9.7 fL (7.4-10.4); Monocytes # 0.7 10^3/uL (0.2-0.9); Monocytes % 9.8 %; Neutrophils # 3.86 10^3/uL (1.8-7.7); Neutrophils % 57.4 %; Nucleated Red Blood Cells % 0 %; Platelet Count 367 10^3/cmm (157-399); Red Blood Count 3.95 10^6/uL (3.85-5.65); Red Cell Distribution Width 20.6 % (12.1-15.1); White Blood Count 6.74 10^3/uL (3.29-11.43)
[2024-07-10 18:41] LABS: Slide Review Slide Review Perform
[2024-07-10 18:51] LABS: Alanine Aminotransferase 10 U/L (0-33); Albumin Level 4.4 g/dL (3.5-5.2); Alkaline Phosphatase 75 U/L (35-105); Anion Gap 14.9 (5-19); Aspartate Amino Transferase 20 U/L (0-32); Blood Urea Nitrogen 12 mg/dL (6-20); Calcium 8.8 mg/dL (8.5-10.5); Carbon Dioxide 23 mmol/L (22-29); Chloride 103 mmol/L (98-107); Creatinine Clr Calc Pharmacy 126.8576; Globulin 3.1 g/dL (1.3-4.6); Glomerular Filtration Rate 134.7 mL/min (90-130); Glucose 67 mg/dL (65-115); Iron 10 ug/dL (37-145); Osmolality Calculated 282 mOsm/kg (285-295); Percent Saturation 2.1 % (20-50); Potassium 3.9 mmol/L (3.5-5.1); Sodium 137 mmol/L (136-145); Total Bilirubin 0.2 mg/dL (0.15-1.2); Total Iron Binding Capacity 455 mcg/dl; Total Protein 7.5 g/dL (6.6-8.7); Unsaturated Iron Binding 445 ug/dL (112-347)
--- NOTE | 2024-07-10 19:06 | DCPLANNER ---
Message sent to clinics to establish PCP.
== END 2024-07-10 23:53 | disposition home or self-care (01) ==
PROVIDERS: Emergency Provider Emergency Medicine
DX: D64.9 Anemia, unspecified (principal); Z72.0 Tobacco use
CPT/HCPCS: 36430; 80053; 83540; 83550; 85025; 86850; 86900; 86920; 99284; P9016

== ENCOUNTER 2024-09-17 07:50 | Oncology outpatient (recurring) (ONCR) | payer OTHER, SELFPAY ==
[2024-09-17 08:13] VITALS: BP 107/70; PULSE 94; RESP 16; TEMP 37; O2SAT 99
[2024-09-17] MEDS: acetaminophen 325 mg Tablet 650 MG PO (08:44)
[2024-09-17] MEDS: sodium chloride 0.9% 500 ML 25 ML IV (08:45)
[2024-09-17] MEDS: diphenhydrAMINE 50 mg/mL SDV 1mL 25 MG IVP (08:45)
[2024-09-17 08:47] LABS: Basophils % 0.8 %; Eosinophils # 0.1 10^3/uL (0.0-0.8); Eosinophils % 2.5 %; Hematocrit 30.8 % (36-47); Lymphocytes # 1.3 10^3/uL (0.8-4.8); Lymphocytes % 32.4 %; Mean Corpuscular HGB Conc 28.9 g/dL (30-55); Mean Corpuscular Hemoglobin 20.4 pg (27-33); Mean Corpuscular Volume 70.6 fl (85-98); Mean Platelet Volume 8.6 fL (7.4-10.4); Monocytes # 0.4 10^3/uL (0.2-0.9); Monocytes % 10.4 %; Neutrophils # 2.12 10^3/uL (1.8-7.7); Neutrophils % 53.6 %; Nucleated Red Blood Cells % 0 %; Platelet Count 348 10^3/cmm (157-399); Red Blood Count 4.36 10^6/uL (3.85-5.65); Red Cell Distribution Width 18.9 % (12.1-15.1); White Blood Count 3.95 10^3/uL (3.29-11.43)
[2024-09-17] MEDS: iron dextran 25 MG in SYRINGE 1 EACH 30 MG IVP (09:23)
[2024-09-17] MEDS: iron dextran 1,200 MG in sodium chloride 0.9% 1,000 ML 250.75 MG IV (10:18)
[2024-09-17 14:33] VITALS: BP 94/63; PULSE 92; RESP 16; TEMP 36.6; O2SAT 92
== END 2024-09-29 23:59 | disposition home or self-care (01) ==
LOC: ONCMED 07:53
PROVIDERS: Visit Provider Family Medicine
DX: D64.9 Anemia, unspecified (principal); Z79.899 Other long term (current) drug therapy
CPT/HCPCS: 85025; 96365; 96375; J1200; J1750; J7030; J7040; J9999

== ENCOUNTER 2024-12-21 18:46 | Emergency (ER) | payer OTHER, SELFPAY ==
[2024-12-21 19:02] VITALS: BP 109/61; PULSE 73; RESP 17; TEMP 36.6; O2SAT 98; BMI 25.1
--- NOTE | 2024-12-21 19:19 | XRR_ITS ---
PROCEDURE INFORMATION: Exam: XR Lumbosacral Spine Exam date and time: 12/21/2024 7:23 PM Age: 44 years old Clinical indication: Lumbago; Localized lower back pain; No known injury TECHNIQUE: Imaging protocol: Radiologic exam of the lumbosacral spine. Views: 2 or 3 views. COMPARISON: No relevant prior studies available. FINDINGS: Bones/joints: Slight levoscoliosis. Alignment is otherwise intact. Vertebral body heights are well-maintained. Disc heights are adequately well-maintained. Soft tissues: The soft tissues are within normal limits. XR/XR lumbar spine 2-3V* [id number] IMPRESSION: No acute pathology.
--- NOTE | 2024-12-21 19:47 | W.ED.BACK ---
HPI - Back Pain/Injury General: Chief Complaint: Back Pain/Injury Stated Complaint: Lower Back Pain Time Seen by Provider: 12/21/24 18:49 History of Present Illness: Patient is a 44-year-old female that complains of a low-lying midline back pain after a car ride. Denies any injury. Car ride was 3 days ago. She stated she kept taking ibuprofen and Tylenol however continues to have pain. No radiation down her legs. No bladder or bowel incontinence or retention. No saddle anesthesia. Associated symptoms: Deny abdominal pain, chills, fatigue, fever(s), nausea or vomiting Related Data Home Medications ?Medication ?Instructions ?Recorded ?Confirmed ferrous sulfate 325 mg (65 mg mg 02/06/22 iron) tablet (Iron (ferrous sulfate)) Previous Rx's ?Medication ?Instructions ?Recorded docusate sodium 100 mg capsule 100 mg PO BID #60 caps 02/17/22 hydrocodone 5 mg-acetaminophen 325 1 - 2 tab PO Q4H PRN Moderate To 02/17/22 mg tablet Severe Pain #12 tabs ibuprofen 800 mg tablet 800 mg PO TID PRN Abdominal 02/17/22 Discomfort #40 tabs meclizine 25 mg tablet 25 mg PO QID PRN dizziness #20 tabs 05/15/22 methocarbamol 500 mg tablet 500 mg PO Q8H PRN muscle spasm #14 12/21/24 tabs methylprednisolone 4 mg tablets in See Rx Instructions PO .COMPLEX 12/21/24 a dose pack (Medrol (Peter)) #21 ea Allergies Allergy/AdvReac Type Severity Reaction Status Date / Time No Known Allergies Allergy Verified 02/09/22 10:36 Review of Systems General: Reports: 10 or more systems reviewed and unremarkable except in HPI and below Const: Denies: fever(s), chills, fatigue or malaise Eyes: Denies: change in vision or blurry vision ENMT: Denies: throat pain or mouth pain Card: Denies: chest pain or palpitations Resp: Denies: dyspnea, productive cough or wheezing GI: Denies: abdominal pain, nausea or vomiting : Denies: flank pain or difficulty voiding Musc: Reports: back pain and joint pain; Denies: neck pain or extremity pain Skin/Breast: Denies: rash or pruritus Neuro: Denies: headache(s), numbness in extremities or sensory changes Psych: Denies: anxiety or depression Endo: Denies: polyuria or polydipsia Jonathan/Lymph: Denies: easy bruising or easy bleeding All/Imm: Denies: urticaria or throat swelling PFSH ED PFSH: Medical History Anemia Surgical History Previous section Social History Smoking and tobacco/nicotine status: current every day tobacco/nicotine user Physical Exam Const: COMMON NORMALS: no acute distress, average body habitus and patient oriented x3 HENMT: COMMON NORMALS: normocephalic and atraumatic HEAD & SCALP: normocephalic and atraumatic Neck/C-Spine: COMMON NORMALS: full ROM and no lymphadenopathy Lymph: LYMPHATIC: no lymphadenopathy noted Chest: COMMONS NORMALS: normal inspection of the chest and normal palpation of the breasts BREAST/AXILLA PALPATION: Yes normal palpation of the breasts Resp: COMMON NORMALS: normal respiratory effort Cardio: COMMON NORMALS: regular rate and regular rhythm RATE: regular rate RHYTHM: regular rhythm GI: COMMON NORMALS: Normal to inspection, nondistended, normoactive bowel sounds present, Soft to palpation and non-tender PALPATION: Yes Soft to palpation : COMMON NORMALS: Yes no CVA tenderness BLADDER/KIDNEY EXAM: Yes no CVA tenderness Back/Pelvis: COMMON NORMALS: no CVA tenderness THORACIC SPINE/UPPER BACK: Yes normal to inspection and Yes thoracic ROM normal LUMBAR SPINE/LOWER BACK: No ROM limited, Yes pain with ROM (minimal), Yes lumbar spinal tenderness Lumbar spinal tenderness location: L2 and L3 (midline) and Yes paraspinal muscle tenderness PELVIS: No sciatic notch tenderness SACROILIAC JOINTS: No SI joints normal Extremity: COMMON NORMALS: normal to inspection, full ROM and capillary refill normal Neuro: COMMON NORMALS: patient oriented x3 Psych: COMMON NORMALS: mental status grossly normal, Normal thought process present, cooperative and normal affect THOUGHT PROCESS: Normal thought process present Skin: COMMON NORMALS: no rashes or lesions noted and no wounds GENERAL SKIN EXAM: no rashes or lesions noted Course Vital Signs: Vital signs: Vital Signs Temperature 97.9 F 12/21/24 19:02 Pulse Rate 73 12/21/24 19:02 Respiratory Rate 17 12/21/24 19:02 Blood Pressure 109/61 12/21/24 19:02 Pulse Oximetry 98 12/21/24 19:02 Oxygen Delivery Me thod Room Air 12/21/24 19:02 MDM - Back Pain/Injury Medical Decision Making Patient is 44-year-old female that hide low back pain however midline lumbar L2-L3 on examination, and therefore warranted an x-ray. X-rays negative for acute fracture. Will defer patient to primary for additional images if needed. She will be controlled with her pain with Toradol/Norflex, and given methocarbamol for home use with instructions and warnings. All of her questions answered to her satisfaction Labs Radiology Impressions Lumbar Spine X-Ray 12/21/24 19:19 IMPRESSION: No acute pathology. All radiology interpretation(s) finalized by discharge ED provider radiology interpretation(s): No acute findings Discharge Plan Discharge Patient Disposition: Home Clinical Impression: Lumbar paraspinal muscle spasm Condition: Stable Prescriptions: New methylprednisolone [Medrol (Peter)] 4 mg tablets,dose pack See Rx Instructions .ROUTE .COMPLEX Qty: 21 0RF Rx Instructions: for 6 days methocarbamol 500 mg tablet 500 mg PO Q8H PRN (Reason: muscle spasm) Qty: 14 0RF No Action ferrous sulfate [Iron (ferrous sulfate)] 325 mg (65 mg iron) Tablet ibuprofen 800 mg Tablet 800 mg PO TID PRN (Reason: Abdominal Discomfort) Qty: 40 0RF hydrocodone-acetaminophen 5-325 mg Tablet 1 - 2 tab PO Q4H PRN (Reason: Moderate To Severe Pain) Qty: 12 0RF docusate sodium 100 mg Capsule 100 mg PO BID Qty: 60 0RF meclizine 25 mg tablet 25 mg PO QID PRN (Reason: dizziness) Qty: 20 0RF Discharge Orders: Discharge ED (Routine); Ordered 12/21/24 Ordered By: Heather Solano Referrals: Charleen Naik MD [Primary Care Provider, Family Practice] Discharge Diet: Usual diet Discharge Activity: Limit activity as instructed Patient Instructions: Back Pain (ED) Activity Restrictions/Additional Instructions: Do not lift over amount of a gallon of milk x 1 week Use Robaxin/methocarbamol for muscle spasms up to every 8 hours. You may utilize naproxen/or ibuprofen and Tylenol together for analgesic. This can be utilized every 6 hours. Medrol Dosepak has been sent to the pharmacy as well. Follow the dosage instruction. Is important to follow-up with your primary care physician regarding today's visit any additional concerns/concerns for additional images. Please call tomorrow for an appointment with your primary care physician. Stand Alone Forms: Work/School Release Print Language: Citizen Of [place] Coding Level of Care Code ED Machine Whitener for Fernanda Moore
[2024-12-21] MEDS: ketorolac 30 mg/mL INJ IM (20:04)
[2024-12-21] MEDS: orphenadrine 30 mg/mL Inj 2 mL 60 MG IM (20:04)
== END 2024-12-21 20:35 | disposition home or self-care (01) ==
PROVIDERS: Emergency Provider Physician Assistant; PCP Family Medicine
DX: M62.830 Muscle spasm of back (principal); Z72.0 Tobacco use
CPT/HCPCS: 72100; 96372; 99284; J1885; J2360

== ENCOUNTER 2025-04-08 11:58 | Outpatient (CLI) | payer OTHER, SELFPAY ==
--- NOTE | 2025-04-08 12:00 | MM_ITS ---
WS: [id number] BILATERAL 3D TOMOSYNTHESIS DIGITAL SCREENING MAMMOGRAPHY WITH CAD CLINICAL INFORMATION: SCREENING HISTORY: Screening mammogram. No current complaints. COMPARISON: Baseline TECHNIQUE: Bilateral CC and MLO views. FINDINGS: The breasts are composed of heterogeneous fibroglandular density tissue, which can limit the detection of small underlying mass lesions. 5 mm slightly spiculated focal asymmetric density upper inner quadrant LEFT breast. Recommend further evaluation with LEFT breast diagnostic mammography and ultrasound if persistent. Unremarkable RIGHT breast. MM/MM [facility] tomosynthesis [id number] IMPRESSION: DENSITY: The breasts are heterogeneously dense, which may obscure small masses. BI-RADS: 0 - Incomplete: Need additional imaging evaluation FOLLOW UP: Need Additional Imaging Recommend further evaluation with LEFT breast diagnostic mammography and ultras ound if persistent.
== END 2025-04-08 11:59 | disposition home or self-care (01) ==
LOC: MOBLMAM 11:59
PROVIDERS: PCP Family Medicine; Visit Provider Family Medicine
DX: Z12.31 Encounter for screening mammogram for malignant neoplasm of breast (principal); R92.333 Mammographic heterogeneous density, bilateral breasts; R92.323 Mammographic fibroglandular density, bilateral breasts; N64.89 Other specified disorders of breast
CPT/HCPCS: 77063; 77067

== ENCOUNTER 2025-04-30 09:56 | Outpatient (CLI) | payer SELFPAY ==
--- NOTE | 2025-04-30 10:05 | MM_ITS ---
WS: [id number] LEFT 3D TOMOSYNTHESIS DIGITAL MAMMOGRAPHY WITH CAD CLINICAL INFORMATION: ABNORMAL SCREENING HISTORY: Additional views COMPARISON: 04/08/2025 TECHNIQUE: 3 views of the left breast were obtained. FINDINGS: Scattered fibroglandular densities of the left breast. Again seen is the slightly irregular 6 mm focal asymmetric density upper inner quadrant LEFT breast. Ultrasound described below. ULTRASOUND BREAST LEFT TECHNIQUE: Ultrasound left breast focused area of concern. CLINICAL INFORMATION: ABNORMAL SCREENING FINDINGS: Ultrasound upper inner quadrant LEFT breast. A few small incidental simple and complex cysts. A few dilated ducts with intraductal debris. No suspicious cystic or solid lesions to target for biopsy. Findings have a benign appearance. Recommend return to annual screening mammography MM/MM diag LT tomosynthesis [id number] IMPRESSION: DENSITY: There are scattered areas of fibroglandular density. BI-RADS: 2 - Benign. FOLLOW UP: 1 Year Follow-up Recommend return to annual screening mammography.
== END 2025-04-30 09:57 | disposition home or self-care (01) ==
LOC: RAD 09:57
PROVIDERS: PCP Family Medicine; Visit Provider Family Medicine
DX: R92.8 Other abnormal and inconclusive findings on diagnostic imaging of breast (principal); R92.322 Mammographic fibroglandular density, left breast; N64.89 Other specified disorders of breast; N60.02 Solitary cyst of left breast
CPT/HCPCS: 76642; 77061; 77063